=== PATIENT | female | born 1975 | race Caucasian/White ===

== ENCOUNTER 2016-06-11 09:20 | Emergency (ER) | payer MEDICAID ==
[~2016-06-11] VITALS: Ht 165.1 cm; Wt 49.9 kg
--- NOTE | 2016-06-11 12:37 | RAD ---
Chest, 2 views, 06/11/2016: History: Cough, congestion The heart size and pulmonary vascularity are normal. The lungs are clear. There is no evidence of pleural fluid. IMPRESSION: No acute cardiopulmonary abnormality is detected.
[2016-06-11 12:46] VITALS: BP 131/95
--- NOTE | 2016-06-11 13:03 | ED.ADGEN ---
Past Medical History Past Medical History: Hypertension Past Surgical History: Cholecystectomy Alcohol Use: None Drug Use: None Adult General Chief Complaint Chief Complaint: FLU SYMPTOM HPI HPI Patient is a 41 year old female who presents with cough, body aches, sinus drainage, headaches. Patient reports she's had symptoms about 1 week. She has a close contact with similar symptoms. She's been using [employer]'s cough drops without relief. No known fevers, patient does smoke. Patient has had previous use of albuterol inhalers. Review of Systems Review of Systems Constitutional: Denies fever or chills. [] Eyes: Denies change in visual acuity. [] HENT: Per history of present illness Respiratory: Per history of present illness Cardiovascular: Denies chest pain or edema. [] GI: Denies abdominal pain, nausea, vomiting, bloody stools or diarrhea. [] : Denies dysuria. [] Musculoskeletal: Denies back pain or joint pain. [] Integument: Denies rash. [] Neurologic: Denies focal weakness or sensory changes. [] Physical Exam Physical Exam Constitutional: Well developed, well nourished, no acute distress, non-toxic appearance. [] HENT: Normocephalic, atraumatic, bilateral external ears normal, oropharynx moist, no oral exudates, nose normal. [] Eyes: PERRLA, EOMI, conjunctiva normal, no discharge. [] Neck: Normal range of motion, no tenderness, supple, no stridor. [] Cardiovascular:Heart rate regular rhythm, no murmur [] Lungs & Thorax: Bilateral breath sounds clear to auscultation [] Abdomen: Bowel sounds normal, soft, no tenderness, no masses, no pulsatile masses. [] Skin: Warm, dry, no erythema, no rash. [] Back: No tenderness, no CVA tenderness. [] Extremities: No tenderness, no cyanosis, no clubbing, ROM intact, no edema. [] Neurologic: Alert and oriented X 3, normal motor function, normal sensory function, no focal deficits noted. [] Psychologic: Affect normal, judgement normal, mood normal. [] Current Patient Data Vital Signs Vital Signs Date Time Temp Pulse Resp B/P Pulse Ox O2 Delivery O2 Flow Rate FiO2 06/11/16 12:46 63 131/95 06/11/16 11:41 98.7 20 100 98.7 EKG EKG [] Radiology/Procedures Radiology/Procedures Chest, 2 views, 06/11/2016: History: Cough, congestion The heart size and pulmonary vascularity are normal. The lungs are clear. There is no evidence of pleural fluid. IMPRESSION: No acute cardiopulmonary abnormality is detected. [] Course & Med Decision Making Course & Med Decision Making Pertinent Labs and Imaging studies reviewed. (See chart for details) No acute process on CXr. Pt dc' with cough syrup and albuterol inhaler. DC: acute upper resp infection Dragon Disclaimer Dragon Disclaimer This electronic medical record was generated, in whole or in part, using a voice recognition dictation system. GRACIELA KAUR MD Jun 11, 2016 13:03
[2016-06-11] MEDS ORDERED: IBUP-1007 PO (13:08)
[2016-06-11] MEDS ORDERED: GUAI120L35 PO (13:08)
== END 2016-06-11 13:12 | disposition home or self-care (01) ==
LOC: ER 09:20
DX: J06.9 Acute upper respiratory infection, unspecified (principal); I10 Essential (primary) hypertension
CPT/HCPCS: 71020; 99284-25